=== PATIENT | female | born 1950 | race Caucasian/White ===

== ENCOUNTER 2016-06-29 12:04 | Inpatient (IN) | payer OTHER ==
[2016-06-29] VITALS (8 sets, daily range): BP systolic 133–173; BP diastolic 58–91
[~2016-06-29] VITALS: Ht 152 cm; Wt 42.0 kg
[~2016-06-29 12:04] MED LIST: CYCLOBENZAPRINE10 MG PO; IBU800 MG PO; ZITHROMAX250 MG PO
[2016-06-29 12:44] LABS: BASO # 0.1 10*3/uL (0.0-0.1); BASO % 1.7 % (0.0-1.0); EOS # 0.2 10*3/uL (0.0-0.4); EOS % 2.9 % (1.0-4.0); HEMATOCRIT 42.3 % (37.0-47.0); HEMOGLOBIN 13.9 g/dl (12.0-16.0); LYMPH # 1.5 10*3/uL (1.3-4.4); LYMPH % 23.5 % (27.0-41.0); MEAN CELL VOLUME 82.5 fl (81.0-99.0); MEAN CORPUSCULAR HGB 27.1 pg (27.0-31.0); MEAN CORPUSCULAR HGB CONC 32.9 g/dl (33.0-37.0); MEAN PLATELET VOLUME 10.7 fl (9.6-12.3); MONO # 0.5 10*3/uL (0.1-1.0); MONO % 7.8 % (3.0-9.0); NEUT # 4.1 10*3/uL (2.3-7.9); NEUT % 63.5 % (47.0-73.0); PLATELET COUNT AUTOMATED 241 10*3/uL (130-400); RED BLOOD COUNT 5.13 10*6/uL (4.10-5.10); RED CELL DISTRI WIDTH 14.9 % (0-14.5); WHITE BLOOD COUNT 6.5 10*3/uL (4.8-10.8)
[2016-06-29 12:59] LABS: ALBUMIN 3.6 gm/dl (3.1-4.5); ALKALINE PHOSPHATASE 82 U/L (45-117); BILIRUBIN, TOTAL 0.3 mg/dl (0.2-1.0); BUN 13 mg/dl (7-24); CARBON DIOXIDE 28 mmol/L (21-32); CHLORIDE 105 mmol/L (98-107); EST GLOM FILT AFRICAN AMERICAN > 60 ml/min; GLUCOSE 88 mg/dL (65-99); POTASSIUM 4.8 mmol/L (3.5-5.1); SGOT/AST 16 IU/L (3-35); SGPT/ALT 13 U/L (12-78); SODIUM 139 mmol/L (136-145); TOTAL PROTEIN 7.5 gm/dL (6.4-8.2); TROPONIN I < 0.015 ng/ml (<0.045)
[2016-06-30] VITALS: BP 141/61
[2016-06-30 06:21] LABS: BASO # 0.1 10*3/uL (0.0-0.1); BASO % 1.1 % (0.0-1.0); EOS # 0.2 10*3/uL (0.0-0.4); EOS % 3.5 % (1.0-4.0); HEMOGLOBIN 13.5 g/dl (12.0-16.0); LYMPH # 1.7 10*3/uL (1.3-4.4); LYMPH % 26.8 % (27.0-41.0); MEAN CELL VOLUME 81.6 fl (81.0-99.0); MEAN CORPUSCULAR HGB 26.2 pg (27.0-31.0); MEAN CORPUSCULAR HGB CONC 32.1 g/dl (33.0-37.0); MEAN PLATELET VOLUME 10.7 fl (9.6-12.3); MONO # 0.5 10*3/uL (0.1-1.0); MONO % 7.5 % (3.0-9.0); NEUT # 3.8 10*3/uL (2.3-7.9); NEUT % 60.6 % (47.0-73.0); PLATELET COUNT AUTOMATED 251 10*3/uL (130-400); RED BLOOD COUNT 5.15 10*6/uL (4.10-5.10); RED CELL DISTRI WIDTH 14.8 % (0-14.5); WHITE BLOOD COUNT 6.3 10*3/uL (4.8-10.8)
[2016-06-30 06:49] LABS: BUN 13 mg/dl (7-24); CARBON DIOXIDE 27 mmol/L (21-32); CHLORIDE 103 mmol/L (98-107); CHOLESTEROL 196 mg/dL (<200); EST GLOM FILT AFRICAN AMERICAN > 60 ml/min; GLUCOSE 91 mg/dL (65-99); MAGNESIUM 2.1 mg/dL (1.5-2.1); SODIUM 138 mmol/L (136-145); TRIGLYCERIDES 106 mg/dl (<150); VLDL CHOLESTEROL 21 mg/dL (6-40)
[2016-06-30 06:50] LABS: HEMOGLOBIN A1c 5.7 % (4.8-5.6)
[2016-06-30 06:57] LABS: HDL CHOLESTEROL 52 mg/dl (40-60); LDL CHOLESTEROL 123 mg/dL (9-159); THYROID STIM HORMONE (HS) 0.566 uIU/ml (0.358-4.75)
[2016-06-30 07:18] LABS: POTASSIUM 3.6 mmol/L (3.5-5.1)
[2016-06-30 08:00] VITALS: BP 128/62
[2016-06-30 08:07] LABS: FOLIC ACID 13.31 ng/mL (>5.38)
[2016-06-30] MEDS ORDERED: HYDR12.5C PO (09:03)
[2016-06-30] MEDS ORDERED: LISINOPRIL10 M1 PO (09:03)
[2016-06-30] MEDS ORDERED: PANTOPRAZOLE SO40 MG PO (09:03)
[2016-06-30] MEDS ORDERED: ASPIRIN ADULT L81 M1 PO (09:03)
[2016-06-30] MEDS ORDERED: PRAVACHOL20 MG PO (09:14)
== END 2016-06-30 11:45 | disposition home or self-care (01) | DRG 392 ==
LOC: ED 12:04 → EDHOLD 14:27 → 4E 14:52
PROVIDERS: Physician Assistant; Student in an Organized Health Care Education/Training Program
DX: K21.9 Gastro-esophageal reflux disease without esophagitis (principal); R65.10 Systemic inflammatory response syndrome (SIRS) of non-infectious origin without acute organ dysfunction; F17.210 Nicotine dependence, cigarettes, uncomplicated; I10 Essential (primary) hypertension; R06.82 Tachypnea, not elsewhere classified; D72.810 Lymphocytopenia; Z80.9 Family history of malignant neoplasm, unspecified; Z88.0 Allergy status to penicillin; Z91.041 Radiographic dye allergy status

== ENCOUNTER → 2016-07-31 | Outpatient (CLI) | payer OTHER ==
[~2016-07-31] MED LIST changes: +ASPIRIN ADULT L81 M1 PO; +HYDR12.5C PO; +LISINOPRIL10 M1 PO; +PANTOPRAZOLE SO40 MG PO; +PRAVACHOL20 MG PO
--- NOTE | ~2016-07-31 | ST ---
[place], [place] EXERCISE STRESS TEST REPORT NAME: PARKER ZARAGOZA UNIT #: [id number] ROOM: DOCTOR: JAVAN JOHNSON MD BIRTHDATE: [birth year] DOS: 07/31/2016 I agree with the dictation done by Clay Ordoñez. The patient had nondiagnostic ST depression in V4, V5. It was about less than 1 mm. She also had nausea clinically. I was present in the room when stress test was done. I agree with Clay's dictation. JAVAN JOHNSON MD CM:STRESS:EXERCISE STRESS TEST REPORT [id number] JAVAN JOHNSON MD
--- NOTE | ~2016-07-31 | ST ---
[place], [place] EXERCISE STRESS TEST REPORT NAME: PARKER ZARAGOZA UNIT #: [id number] ROOM: DOCTOR: CLAY ORDOÑEZ DO BIRTHDATE: [birth year] DOS: 07/31/2016 INDICATIONS: 1. Chest pain. 2. Pharmacological stress. The patient was given 0.4 mg of IV Lexiscan over a 10 second period followed by nuclear injection of 40 seconds and then 2 minutes of recovery. The test was terminated due to completion. Performance, the baseline heart rate was 57. The baseline blood pressure was 158/62. The heart rate at 2 minutes was 110. The blood pressure at 2 minutes was 144/68. The EKG response showed nondiagnostic ST depressions in leads V4 and V5, none of which were qualifying. The baseline EKG was grossly normal. Clinical response to this, the patient had some nausea that resolved soon after. 3. Interpretation: It is a suggestive stress test, but nonqualifying for ST depression. The stress test was observed by Dr. Johnson. Clay Ordoñez DO JAVAN JOHNSON MD CM:STRESS:EXERCISE STRESS TEST REPORT [id number] CLAY ORDOÑEZ DO
== END | disposition home or self-care (01) ==
LOC: CARD 03:19
DX: R07.2 Precordial pain (principal); R11.0 Nausea

== ENCOUNTER 2022-06-18 15:46 | Emergency (ER) | payer OTHER ==
[~2022-06-18] VITALS: Ht 149.8 cm; Wt 33.6 kg
[2022-06-18 17:04] LABS: BASO # 0.1 10*3/uL (0.0-0.1); BASO % 1.5 % (0.0-1.0); EOS # 0.1 10*3/uL (0.0-0.4); EOS % 1.7 % (1.0-4.0); HEMATOCRIT 46.2 % (37.0-47.0); LYMPH # 1.3 10*3/uL (1.3-4.4); LYMPH % 19.9 % (27.0-41.0); MEAN CELL VOLUME 86.5 fl (81.0-99.0); MEAN CORPUSCULAR HGB 28.8 pg (27.0-31.0); MEAN CORPUSCULAR HGB CONC 33.3 g/dl (33.0-37.0); MEAN PLATELET VOLUME 9.9 fl (9.6-12.3); MONO # 0.6 10*3/uL (0.1-1.0); MONO % 8.5 % (3.0-9.0); NEUT # 4.4 10*3/uL (2.3-7.9); NEUT % 67.8 % (47.0-73.0); PLATELET COUNT AUTOMATED 298 10*3/uL (130-400); RED BLOOD COUNT 5.34 10*6/uL (4.10-5.10); RED CELL DISTRI WIDTH 13.4 % (0-14.5); WHITE BLOOD COUNT 6.5 10*3/uL (4.8-10.8)
[2022-06-18] MEDS ORDERED: SERTRALINE HYDR50 MG PO (17:04)
[2022-06-18] MEDS ORDERED: OMEPRAZOLE MAGN20 MG PO (17:04)
[2022-06-18 17:23] LABS: ACT PARTIAL THROMBO TIME 28.3 SECONDS (20.0-32.1)
[2022-06-18 17:24] LABS: BILIRUBIN Negative (Negative); BLOOD Negative (Negative); CLARITY Clear (Clear); COLOR Yellow (Yellow); GLUCOSE Negative (Negative); KETONE Negative (Negative); LEUKO ESTERASE Negative (Negative); NITRITE Negative (Negative); PH 7.5 (4.5-8.0); SPECIFIC GRAVITY 1.015 (1.001-1.030)
[2022-06-18 17:25] LABS: ALKALINE PHOSPHATASE 86 U/L (46-116); BUN 8 mg/dl (9-23); CHLORIDE 101 mmol/L (98-107); LIPASE 38 U/L (12-53); POTASSIUM 3.9 mmol/L (3.4-5.1); SGPT/ALT 10 U/L (10-49); TOTAL PROTEIN 7.3 gm/dL (6.0-8.0)
[2022-06-18 17:35] LABS: EPITHELIAL CELLS 0-2; RBC 0-2 rbc/hpf (0-2); WBC 0-2 wbc/hpf (0-5)
== END 2022-06-18 17:59 | disposition home or self-care (01) ==
LOC: ED 15:46
PROVIDERS: Physician Assistant
DX: F41.9 Anxiety disorder, unspecified (principal); R42 Dizziness and giddiness; K21.9 Gastro-esophageal reflux disease without esophagitis; I10 Essential (primary) hypertension; E78.00 Pure hypercholesterolemia, unspecified; Z88.0 Allergy status to penicillin; Z91.041 Radiographic dye allergy status; Z72.0 Tobacco use

== ENCOUNTER → 2024-08-12 | Outpatient (CLI) | payer OTHER, MEDICAID ==
[~2024-08-12] MED LIST changes: +OMEPRAZOLE MAGN20 MG PO; +SERTRALINE HYDR50 MG PO
[2024-08-12 14:28] LABS: BASO # 0.1 10*3/uL (0.0-0.1); BASO % 1.4 % (0.0-1.0); EOS # 0.1 10*3/uL (0.0-0.4); EOS % 1.6 % (1.0-4.0); HEMATOCRIT 45.4 % (37.0-47.0); MEAN CELL VOLUME 82.8 fl (81.0-99.0); MEAN CORPUSCULAR HGB 26.8 pg (27.0-31.0); MEAN CORPUSCULAR HGB CONC 32.4 g/dl (33.0-37.0); MEAN PLATELET VOLUME 10.3 fl (9.6-12.3); MONO # 0.4 10*3/uL (0.1-1.0); MONO % 7.2 % (3.0-9.0); NEUT # 3.8 10*3/uL (2.3-7.9); NEUT % 68.7 % (47.0-73.0); PLATELET COUNT AUTOMATED 218 10*3/uL (130-400); RED BLOOD COUNT 5.48 10*6/uL (4.10-5.10); RED CELL DISTRI WIDTH 14.5 % (0-14.5); WHITE BLOOD COUNT 5.5 10*3/uL (4.8-10.8)
[2024-08-12 14:59] LABS: ALKALINE PHOSPHATASE 105 U/L (46-116); BUN 7 mg/dl (9-23); CHLORIDE 102 mmol/L (98-107); SGPT/ALT 7 U/L (5-49); TOTAL PROTEIN 7.4 gm/dL (6.0-8.0)
== END | disposition home or self-care (01) ==
LOC: LAB 13:43
PROVIDERS: ATTEND Internal Medicine
DX: J44.9 Chronic obstructive pulmonary disease, unspecified (principal); R06.02 Shortness of breath; R05.3 Chronic cough